=== PATIENT | male | born 1975 | race Caucasian/White ===

== ENCOUNTER 2022-09-06 14:13 | Outpatient (CLI) | payer OTHER, SELFPAY ==
--- NOTE | 2022-09-06 14:30 | MR_ITS ---
[facility] [address] [facility] [address] Phone:?[phone] Fax:?[phone] Referring Physician Information: Isai Keating M.D. [address] [facility] [address] Phone:?[phone] Fax:?[phone] Patient:Daniel Lopez D.O.B:?1975 Sex:?Male Phone:?[phone] [facility] MRN:?[id number] Exam Date:?09/06/2022 ? EXAM: MRI of the RIGHT SHOULDER, without contrast CLINICAL HISTORY: Right shoulder pain. Evaluate for rotator cuff tear. Cannot sleep on the right shoulder. COMPARISONS: None available. TECHNICAL: MRI sequences of the right shoulder: Axials: PD, T2 Coronals: PD, STIR, T2 Sagittals: PD, T2?SEDATION: None CONTRAST: None FINDINGS: Bones: No fracture or suspicious bone marrow signal abnormality. Coracoacromial arch: Acromion: No os acromiale. Type I-II acromion. Acromiohumeral space: The bony distance is unremarkable. Coracohumeral space: The bony distance is unremarkable. Acromioclavicular joint: No acute injury, arthropathy, or inferior hypertrophy. Coracoclavicular ligament: The coracoclavicular ligament is intact. Rotator cuff muscles/tendons: Supraspinatus: 1.2 x 1.2 cm near full-thickness bursal sided tear of the supraspinatus tendon insertional footprint contacts the cortical insertional surface and is superimposed upon mild supraspinatus tendinopathy best seen on sagittal series 8 image 8 and coronal series 4 images 11 through 14. No atrophy of the supraspinatus muscle. Infraspinatus: Mild tendinopathy. No muscular atrophy. Teres minor: The teres minor tendon and muscle are intact. Subscapularis: Interstitial delamination and mild to moderate tendinopathy of the superior portion of the subscapularis tendon. No atrophy of the subscapularis muscle. Labrum and glenohumeral joint: Posterosuperior labral fraying. Physiologic amount of joint fluid. No full-thickness chondral defect or subchondral bone marrow edema/cystic change is seen. No convincing evidence of capsular edema or thickening although evaluation is suboptimal because of lack of joint distention. Proximal biceps tendon, long head and short heads: Mild medial subluxation of the proximal long head of the biceps tendon at the superior aspect of the bicipital groove. Mild tendinopathy within the intra- articular portion of the long head of the biceps tendon. The short is intact. Bursae: Subacromial/subdeltoid: Mild bursitis. Subcoracoid: No convincing subcoracoid bursal thickening/bursitis. IMPRESSION: 1. 1.2 x 1.2 cm near full-thickness bursal sided tear of the supraspinatus tendon insertional footprint contacts the cortical insertional surface and is superimposed upon mild supraspinatus tendinopathy. 2. Interstitial delamination and mild to moderate tendinopathy of the superior portion of the subscapularis tendon. 3. Mild infraspinatus tendinopathy. 4. Mild medial subluxation of the proximal long head of the biceps tendon at the superior aspect of the bicipital groove. Mild tendinopathy within the intra- articular portion of the long head of the biceps tendon. 5. Mild subacromial/subdeltoid bursitis. 6. Posterosuperior labral fraying. RCB Electronically signed on 09/06/2022 4:38:00 PM by Marino Lilly M.D.
== END 2022-09-06 14:14 | disposition home or self-care (01) ==
LOC: MRI 14:13
PROVIDERS: PCP Family Medicine; Visit Provider Family Medicine
DX: M25.511 Pain in right shoulder (principal); M75.101 Unspecified rotator cuff tear or rupture of right shoulder, not specified as traumatic; G89.29 Other chronic pain; M75.51 Bursitis of right shoulder
CPT/HCPCS: 73221

== ENCOUNTER 2022-09-17 08:43 | Outpatient (CLI) | payer OTHER, SELFPAY | END 2022-09-17 08:44 | disposition home or self-care (01) | PROVIDERS: PCP Family Medicine; Visit Provider Internal Medicine | DX: Z12.11 Encounter for screening for malignant neoplasm of colon (principal) | CPT/HCPCS: 45378; 45380; J2250; J3010 ==

== ENCOUNTER 2022-11-08 15:47 | Outpatient (CLI) | payer OTHER, SELFPAY | END 2022-11-08 15:48 | disposition home or self-care (01) | PROVIDERS: PCP Family Medicine; Visit Provider Family Medicine | DX: Z01.818 Encounter for other preprocedural examination (principal); R73.03 Prediabetes | CPT/HCPCS: 80048; 85025 ==

== ENCOUNTER 2022-11-22 06:08 | Day surgery (SDC) | payer OTHER, SELFPAY ==
[2022-11-22] VITALS (15 sets, daily range): BP systolic 108–131; BP diastolic 71–85; PULSE 63–84; RESP 14–18; TEMP 36.1–36.7; O2SAT 92–97; BMI 38.5
[2022-11-22] MEDS: LACTATED RINGERS 1000 ML 1,000 ML 100 ML IV ×2 (06:15→09:02)
--- NOTE | 2022-11-22 06:22 | SUR.PREOP ---
Patient provided home covid negative results to RN.
[2022-11-22] MEDS: SODIUM CHLORIDE 0.9 % (FLUSH) 10 ML SYRINGE IVF (06:48)
[2022-11-22] MEDS: fentaNYL 100 MCG/2 ML inj IVP (07:06)
[2022-11-22] MEDS: MIDAZOLAM HCL 1 MG/ML inj IVP (07:06)
--- NOTE | 2022-11-22 07:08 | SUR.PREOP ---
TIME?OUT:?704 PT/Robina Weber RN/Jeb Cummins CRNA?VERIFICATION?OF?SURGICAL?SITE right shoulder,?PROCEDURE,?AND?CONSENT OBTAINED?PRIOR?TO?INVASIVE?PROCEDURE.
[2022-11-22] MEDS: CEFAZOLIN 2 GM in 0.9 % SODIUM CHLORIDE Mini-bag 100 ML IVPB (07:41)
[2022-11-22] MEDS: EPINEPHrine 1 MG in SODIUM CHLORIDE IRRIG SOLUTION 3,000 ML 6002 MG IRRIGATION (07:55)
--- NOTE | 2022-11-22 08:27 | P.NB_ITS ---
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 Images saved: Yes Medications given in 5ml increments after negative aspiration: Ropivicaine %: 0.5 mL: 20 Needle gauge: 22 Decadron (mg): 10 Precedex (mcg): 25 Patient tolerated procedure well: Yes Block Charges Block Charge (with Pro Fee): Brachial Plexus Use of Ultrasound Machine for Block: Yes- US Guidance/pain block
--- NOTE | 2022-11-22 09:02 | PM.ORPRC ---
Procedure Note Date of procedure: 11/22/22 Procedure: PREOPERATIVE DIAGNOSES: 1. Right shoulder rotator cuff tear full-thickness supraspinatus 2. Right shoulder subacromial impingement syndrome. POSTOPERATIVE DIAGNOSES: 1. Right shoulder rotator cuff tear - supraspinatus and upper border subscapularis 2. Right shoulder subacromial impingement syndrome. 3. Right shoulder anterior and superior labral tearing NAME OF OPERATION: 1. Right shoulder arthroscopic rotator cuff repair (full-thickness supraspinatus and upper border subscap) 2. Right shoulder arthroscopic limited glenohumeral debridement 3 Right shoulder arthroscopic bursectomy, subacromial decompression/partial acromioplasty. SURGEON: Daryn Montes MD NETWORK CONSULTANT: Gerard Brunson PA-C. Of note, a skilled anesthesiology physician assistant was critical for this case to aide in patient positioning, suture manipulation, arm positioning, instrument positioning, and closure. ANESTHESIA: General plus preoperative supraclavicular block. EBL: Less than 50 mL IMPLANTS: Arthrex 2.6 mm FiberTak RC (x1); 4.75 mm BioComposite SwiveLock suture anchor (x1); 5.5 mm BioComposite SwiveLock suture anchor (x1) COMPLICATIONS: None evident INDICATIONS: The patient is a pleasant, 47-year-old male who has experienced right shoulder pain that has been increasing in recent time. Physical exam and imaging were consistent with a rotator cuff tear. Given their findings, as well as the weakness and pain, and inadequate response to nonoperative management, recommendation was made for surgery. FINDINGS: Exam under anesthesia revealed stable shoulder with excellent range of motion. The diagnostic arthroscopy revealed healthy chondral surfaces of the glenohumeral joint. The Subscapularis tendon was torn from its upper border with mild retraction. The long head of the biceps tendon was intact and appeared to be within the groove during the procedure including with any shoulder manipulation/range of motion. The superior rotator cuff tendon was found to be torn full-thickness through the anterior 1/2 of the supraspinatus with mild crescent tear retraction. The labrum was degeneratively frayed in the anterior and superior aspects. No loose bodies were identified within the pouch or subscapularis recess. PROCEDURE: Following a thorough discussion of risks, benefits, and alternatives, consent was obtained and the right shoulder was marked. The patient was brought to the operating room and placed supine on the operating table. Induction of anesthesia was completed after preoperative supraclavicular block was administered in preop holding. Appropriate time out was performed identifying proper patient, site, and procedure. 2 g IV Ancef was administered within 1 hour of incision preoperatively. The right upper extremity was prepped and draped in the appropriate sterile fashion using ChloraPrep prep. This was after the patient was positioned in the beach chair with their head in neutral alignment and all bony prominences well padded. The shoulder was insufflated with 20mL of normal saline via an 18g spinal needle from a posterior approach. An 11 blade skin incision allowed a blunt trochar to be inserted and diagnostic arthroscopy to be performed with the findings as noted above. An anterior portal was established with an outside in technique. This allowed the probe to be inserted and confirm the diagnostic arthroscopic findings. The shaver was then inserted and allowed debridement of the anterior and superior labrum. Following this, the upper border subscapularis was repaired after debriding the lesser tuberosity with the shaver and [place] cautery. Subscapularis was captured in horizontal mattress fashion with a fiber tape suture. The tails were brought to a single anchor in the lesser tuberosity with excellent reapproximation of the subscap tendon and good excursion/tension. Thereafter, the subacromial space was entered. Here, a complete bursectomy and partial acromioplasty/subacromial decompression was performed with a combination of radiofrequency ablator, the shaver, and a 5.5 mm bur. Further inspection of the supraspinatus and infraspinatus rotator cuff was performed. This identified the tear as noted above. The margins of the tear were debrided, and the greater tuberosity was debrided with a combination of the [place] cautery, shaver, and bur on reverse setting. After gentle decortication, single FiberTak RC anchor was placed for medial row. The 4 tails of this knotless anchor were passed independently and all brought to a single lateral row anchor with excellent tissue reapproximation and compression against the greater tuberosity footprint. Prior to anchor boom truck driver removal, the eyelet sutures were tugged on for each anchor and found that the anchor had excellent stability within the bone. The shoulder was placed through range of motion and found to be stable. The rotator cuff was re-probed and found to be stable. Instruments were removed. Excess fluid was drained, closure performed with 4-0 Monocryl and Steri-Strips. Dressings were applied. Sling was applied. The patient was awoken from anesthesia and transferred to the PACU in stable condition. A skilled anesthesiology physician assistant was critical for this case to aid in patient positioning, limb positioning, skill to manipulate arthroscopic instruments and camera, suture management, patient safety, and closure. PLAN: 1. Elbow, forearm, wrist and digit range of motion as tolerated. 2. Encouraged ice. 3. Percocet for pain as needed. 4. Sling at all times except for ROM and showering. 5. Follow up with PA visit in 1-2 weeks for wound check. Initiate physical therapy following that visit for passive range of motion. Initiate active assisted range of motion at 3 weeks. May do pendulums now.
--- NOTE | 2022-11-22 09:29 | W.ANESCHARGE ---
Anesthesia Charges Start Date/Time Anesthesia Start Date: 11/22/22 Anesthesia Start Time: 07:20 Stop Date/Time Anesthesia Stop Date: 11/22/22 Anesthesia Stop Time: 09:22
--- NOTE | 2022-11-22 10:05 | SUR.PHASEI ---
patient met discharge criteria per anesthesia
== END 2022-11-22 11:27 | disposition home or self-care (01) ==
PROVIDERS: PCP Family Medicine; Visit Provider Orthopaedic Surgery Sports Medicine
PROC: (CPT 29805; principal; 2022-11-22 07:30)
DX: M75.121 Complete rotator cuff tear or rupture of right shoulder, not specified as traumatic (principal); M75.41 Impingement syndrome of right shoulder; S43.431A Superior glenoid labrum lesion of right shoulder, initial encounter
CPT/HCPCS: 29827; 29826; 29822; 1630; 64415; 76942; C1713; J0171; J0330; J0690; J1100; J2250; J2405; J2704; J2795; J3010; J7120; L3670

== ENCOUNTER 2023-02-25 16:00 | Outpatient (RCR) | payer OTHER, SELFPAY | END 2023-06-10 09:16 | disposition home or self-care (01) | PROVIDERS: PCP Family Medicine; Visit Provider Orthopaedic Surgery Sports Medicine | DX: M75.101 Unspecified rotator cuff tear or rupture of right shoulder, not specified as traumatic (principal); Z98.890 Other specified postprocedural states; M25.511 Pain in right shoulder; Z74.09 Other reduced mobility; R53.1 Weakness; Z51.89 Encounter for other specified aftercare | CPT/HCPCS: 97110; 97140; 97161 ==